=== PATIENT | female | born 1975 | race Hispanic/Latino ===

== ENCOUNTER 2018-05-01 06:21 | Day surgery (SDC) | payer OTHER ==
[2018-04-30 14:05] VITALS: BMI 33.0
[2018-05-01] MEDS ORDERED: CEFAZOLIN 2 GM/50 ML BAG ONE (09:41)
[2018-05-01] MEDS ORDERED: Fentanyl 100 MCG/2 ML VIAL ONE ×2 (11:44→13:47)
[2018-05-01] MEDS ORDERED: Bupivacaine/Epinephrine 0.25% 30 ML VIAL ONE (11:52)
[2018-05-01] MEDS ORDERED: Iothalamate Meglumine 60% 50 ML VIAL FS ONE (11:52)
[2018-05-01] MEDS ORDERED: Lidocaine 1% PF 5 ML VIAL ONE (13:16)
[2018-05-01] MEDS ORDERED: Ketorolac Tromethamine 30 MG/ML VIAL ONE (13:16)
[2018-05-01] MEDS ORDERED: PROPOFOL 200 MG/20 ML VIAL ONE (13:16)
[2018-05-01] MEDS ORDERED: ePHEDrine/0.9% NaCl/PF SYRINGE 50 mg/10 ml ONE (13:16)
[2018-05-01] MEDS ORDERED: Succinylcholine Chloride 20 MG/ML 10 ml SYRINGE FS ONE ×2 (13:16)
[2018-05-01] MEDS ORDERED: Dexamethasone 20 MG/5 ML VIAL ONE (13:16)
[2018-05-01] MEDS ORDERED: Ondansetron PF 4 MG/2 ML Vial ONE (13:16)
[2018-05-01] MEDS ORDERED: Glycopyrrolate 0.2 MG/ML 5 ML SYRINGE ONE (13:16)
[2018-05-01] MEDS ORDERED: PHENYLEPHRINE-NS 100 MCG/ML 10 ML SYRINGE ONE (13:16)
[2018-05-01] MEDS ORDERED: Promethazine HCl 25 MG/ML VIAL ONE (13:36)
--- NOTE | 2018-05-01 14:08 | PDOC.OP ---
Operative Note - Operative Note Operative Note: PROCEDURE: Laparoscopic cholecystectomy with intraoperative cholangiogram SURGEON: Johny English M.D. DATE OF PROCEDURE: 05/01/2018 PREOPERATIVE DIAGNOSIS: Cholelithiasis and cholecystitis, possible choledocholithiasis: POSTOPERATIVE DIAGNOSIS: Cholelithiasis and cholecystitis HISTORY: Patient with a many year history of postprandial pain in the right upper quadrant, worse over the past year. She has gallstones on ultrasound and a dilated common bile duct. Recommendation was made to proceed with laparoscopic cholecystectomy for symptomatic relief, with intraoperative cholangiogram to evaluate for possible choledocholithiasis. FINDINGS: Omental adhesions obscuring the lower half of the gallbladder. Normal cholangiogram. PROCEDURE IN DETAIL: After informed consent was obtained and appropriate preoperative antibiotics were administered, the patient was taken to the operating room and placed in the supine position and general endotracheal anesthesia was administered. The stomach was decompressed with an OG tube and the abdomen was prepped and draped in standard sterile fashion. Local anesthesia was infused to the skin and subcutaneous tissues at the umbilical level. A transverse skin incision was made. The fascia was elevated and a Veress needle was placed into the abdominal cavity without difficulty. Opening pressure was less than 5 and carbon dioxide gas easily insufflated to an intra- abdominal pressure of 15, which the patient tolerated well. The Veress needle was withdrawn and a Secor port advanced under direct vision. The abdominal cavity was carefully examined. There was no evidence of Veress needle or of trocar injury. Local anesthesia was infused to the skin and subcutaneous tissues at the epigastric, right upper quadrant, and right lateral abdominal sites and trocars were placed under direct vision of the laparoscope. The fundus of the gallbladder was grasped and retracted superiorly. The lower half the gallbladder was obscured by omental adhesions. These were carefully taken down through the avascular plane exposing the infundibulum. The infundibulum was grasped and retracted laterally. The serosa was stripped inferiorly at the level of the neck of the gallbladder exposing the cystic duct and artery which were traced clearly to their insertion in the gallbladder. These were dissected free circumferentially and the cystic duct was clipped at the level of the neck of the gallbladder. The cystic artery was clipped but not divided. An incision was made in the cystic duct inferior to the clip and the cystic duct was palpated with no stones palpable. Clear bile was seen to flow from the cystic duct incision. A cholangiogram catheter was introduced and placed into the cystic duct and secured with a clip. A cholangiogram was obtained which showed an adequate length of cystic duct. There was normal filling of the common bile duct with free flow of contrast into the duodenum. There was normal retrograde flow into the common hepatic duct beyond the level of the bifurcation without filling defects. The cholangiogram catheter was removed and the cystic duct clipped below the incision in the cystic duct. The cystic duct was divided between these clips and the previously placed clip. The cystic artery was clipped and divided between the previously placed clips. The gallbladder was then dissected free of the gallbladder bed using hook electrocautery. Prior to complete removal of the gallbladder from the gallbladder bed, the area of the cystic duct and artery stumps was examined. The clips were in good position completely across these structures and there was no bleeding and no leakage of bile. The gallbladder was then placed into an EndoCatch bag and drawn out through the epigastric incision. The epigastric trocar was replaced and the operative site easily irrigated to clear. There was no significant bleeding or spillage of bile. The epigastric trocar was removed and the fascia closed under direct laparoscopic vision with a 0 Vicryl suture on a GraNee needle in a figure -of-eight manner with excellent technical result. The right upper quadrant and right lateral abdominal trocars were removed and hemostasis verified. Carbon dioxide gas was allowed to desufflate through the umbilical trocar which was then removed. The skin incisions were closed with 4-0 subcuticular Monocryl sutures and Dermabond dressings were placed. The patient was extubated and taken to the recovery room in good condition. There were no complications. ESTIMATED BLOOD LOSS: Minimal. SPECIMEN : Gallbladder and contents.
--- NOTE | 2018-05-01 14:35 | RAD ---
INTRAOPERATIVE CHOLANGIOGRAM 1 VIEW: Date: 05/01/18 HISTORY: 42-year-old female status post cholecystectomy for cholelithiasis. FINDINGS: Injection into cystic duct stump demonstrates normal caliber common bile duct, common hepatic duct, a nd cystic duct. There is normal caliber of two of the intrahepatic biliary radicles. Otherwise, the r ight and left hepatic ducts are not opacified. No filling defect is identified. There is contrast mat erial in the nondilated second stage of the duodenum. No extravasation. IMPRESSION: Normal appearance of the common bile duct. POS: [facility]
[2018-05-01] MEDS ORDERED: HYDROcodone/Acetaminophen 5/325 mg Tablet ONE (16:03)
== END 2018-05-01 16:48 | disposition home or self-care (01) ==
LOC: SDC 06:21
PROVIDERS: ATTEND Surgery
PROC: 0FT44ZZ Resection of Gallbladder, Percutaneous Endoscopic Approach (ICD-10-PCS; principal; 2018-05-01)
PROC: BF101ZZ Fluoroscopy of Bile Ducts using Low Osmolar Contrast (ICD-10-PCS; principal; 2018-05-01)
DX: K80.10 Calculus of gallbladder with chronic cholecystitis without obstruction (principal); F32.9 Major depressive disorder, single episode, unspecified; Z79.899 Other long term (current) drug therapy
CPT/HCPCS: 47532; 88304; 96374; J1100; J1610; J1885; J2001; J2405; J2550; J2704; J3010; Q9961

== ENCOUNTER 2018-07-16 09:16 | Outpatient (CLI) | payer OTHER ==
--- NOTE | 2018-07-16 10:35 | RAD ---
BARIUM SWALLOW/ESOPHAGUS: History: Difficulty swallowing, diverticulum, feels like things get stuck in her esophagus. FINDINGS: Normal swallowing function was noted. No evidence for Zenker's diverticulum. No evidence for esophage al stricture, ulcer, or mass. There were several episodes of mild to moderate gastroesophageal reflux demonstrated. IMPRESSION: Mild to moderate gastroesophageal reflux. No evidence for other significant acute process. No esophag eal stricture, ulcer or mass. No Zenker's diverticulum. POS: [facility]
== END 2018-07-16 09:17 | disposition home or self-care (01) ==
LOC: RAD 09:16
PROVIDERS: ATTEND Family Medicine
DX: R13.10 Dysphagia, unspecified (principal); K21.9 Gastro-esophageal reflux disease without esophagitis
CPT/HCPCS: 74220